=== PATIENT | female | born 1945 | race Caucasian/White ===

== ENCOUNTER 2018-05-25 12:32 | Inpatient (IN) | payer MEDICARE, BC ==
[~2018-05-25] VITALS: Ht 157.5 cm; Wt 98.4 kg
[~2018-05-25 12:32] MED LIST: AMLO10TA6 PO; AMPH20CA11 PO; ASCO500C16 PO; ASPI-605 PO; CHOL100040 PO; CYAN500T4 PO; FLUO-120 PO; FLUV100T3 PO; GABA-534 PO; HYDR25TA4 PO; KELP1TAB PO; LAMO100T PO; LEVO50TA8 PO; LOSA100T31 PO; OLAN5TAB3 PO; OMEG1CAP55 PO; PANT20TA3 PO; SULF500T8 PO; VITA400C19 PO
--- NOTE | 2018-05-25 12:57 | NUR ---
PT BROUGHT IN BY FAMILY MEMBER WITH C/C OF PT AND FAMILY NOT BEING ABLE TO CARE FOR SELF PT EVALUATED BY MD WILL CONTINUE TO MONITOR.
[2018-05-25 13:22] LABS: BASOPHILS % (AUTO) 0.8 % (0.0-2.0); EOSINOPHILS % (AUTO) 2.4 % (0.0-6.0); HEMATOCRIT 34 % (33-45); HEMOGLOBIN 11.2 g/dL (11.5-14.8); LYMPHOCYTES # (AUTO) 1.3 /CMM (0.8-4.8); LYMPHOCYTES % (AUTO) 24.6 % (20.0-44.0); MEAN CORPUSCULAR HGB CONC 33 g/dl (31.0-36.0); MEAN CORPUSCULAR VOLUME 93 fL (82-100); MONOCYTES # (AUTO) 0.6 /CMM (0.1-1.30); MONOCYTES % (AUTO) 11.5 % (2.0-12.0); NEUTROPHILS # (AUTO) 3.3 /CMM (1.8-8.9); NEUTROPHILS % (AUTO) 60.7 % (43.0-81.0); PLATELET COUNT (AUTO) 195 /CMM (150-450); RED BLOOD CELL COUNT(AUTO) 3.63 MIL/uL (4.0-5.2); WHITE BLOOD COUNT (AUTO) 5.4 K/uL (4.3-11.0)
[2018-05-25 13:34] LABS: CALCIUM, SERUM 9.7 mg/dL (8.5-10.1); CREATININE 1.3 mg/dL (0.6-1.3); POTASSIUM 3.4 mmol/L (3.5-5.1)
[2018-05-25 13:40] LABS: ALBUMIN 3.7 g/dL (3.4-5.0); BILIRUBIN,DIRECT 0.1 mg/dL (0.0-0.2); BILIRUBIN,TOTAL 0.4 mg/dL (0.2-1.0); TOTAL PROTEIN, SERUM 7.9 g/dL (6.4-8.2)
[2018-05-25] MEDS ORDERED: MECL-102 PO (13:56)
[2018-05-25] MEDS ORDERED: OMEG1CAP40 PO (13:56)
[2018-05-25] MEDS ORDERED: IV NS 0.9% 1,000 ML BAG IV ONE (14:00)
[2018-05-25] MEDS ORDERED: ACETAMINOPHEN 650 MG/20.3 ML UDC NG ONE (14:30)
--- NOTE | 2018-05-25 14:34 | NUR ---
RN REPORT GIVEN TO GAMALIEL WATSON ON 3 PT ADMITTED TO ROOM 310 BY MD CALABRESE
[2018-05-25] MEDS ORDERED: ACETAMINOPHEN ES 500 MG TABLET ONE (14:36)
[2018-05-25 15:30] VITALS: BP 144/78
--- NOTE | 2018-05-25 15:30 | NUR ---
MS GARMENT INSPECTOR NOTE PT ARRIVED TO MS UNIT IN STABLE CONDITION VIA GURNEY. PT IS A/O X4, AFEBRILE. RESPIRATIONS ARE EVEN AND UNLABORED, NOT IN ANY ACUTE DISTRESS NOTED. PUPILS ARE REACTIVE TO LIGHT, BILATERAL HAND VASCULAR ULTRASOUND TECHNOLOGIST ARE STRONG AND EQUAL. DENIES ANY CHEST PAIN, SOB, N/V. PT C/O PAIN TO LEFT ARM 02/11 BUT STATES "I CAN TOLERATE IT." CAST NOTED TO RIGHT ARM, SLING NOTED TO LEFT ARM. BRUISING ALSO NOTED TO LEFT ARM, PHOTOS TAKEN. ABDOMEN IS SOFT AND NONDISTENDED, BOWEL SOUNDS ARE PRESENT IN ALL 4 QUADRANTS UPON AUSCULTATION. DENIES ANY BLADDER DISCOMFORT. IV SITE TO RAC 20G INTACT, NO INFILTRATION NOTED. DRESSING KEPT CLEAN AND DRY. BELONGINGS ACCOUNTED FOR. [facility] CALABRESE MADE AWARE OF NEW ADMISSION WITH ORDERS CARRIED OUT. WILL CONTINUE TO MONITOR THROUGHOUT SHIFT FOR CONTINUITY OF CARE.
[2018-05-25] MEDS ORDERED: ONDANSETRON HCL/PF 4 MG/2 ML VIAL IVP PRN (16:00)
[2018-05-25] MEDS ORDERED: ZOLPIDEM TARTRATE 5 MG TABLET PO PRN (16:00)
[2018-05-25] MEDS ORDERED: HYDROCODONE/APAP 10/325MG 1 EA TABLET PO PRN (16:00)
[2018-05-25] MEDS ORDERED: MECLIZINE HCL 25 MG TABLET PO PRN (16:00)
[2018-05-25] MEDS ORDERED: HYDROCODONE/APAP 5/325MG 1 EACH TABLET PO PRN (16:00)
[2018-05-25 16:16] VITALS: BP 144/78
[2018-05-25] MEDS ORDERED: SULFASALAZINE 500 MG TABLET PO SCH (17:00)
--- NOTE | 2018-05-25 17:13 | NUR ---
MS RN NOTES-- PT STATED SHE TAKES SULFASALAZINE AT NIGHT WITH ALL HER OTHER MEDICATIONS. [facility] CALABRESE AGREED TO CHANGE MEDICATION TIME.
--- NOTE | 2018-05-25 18:16 | NUR ---
MS RN CLOSING NOTES NEEDS MET AND ANTICIPATED. PT REMAINS A/O X4, AFEBRILE. RESPIRATIONS ARE EVEN AND UNLABORED, NOT IN ANY ACUTE DISTRESS NOTED. DENIES ANY CHEST PAIN, SOB, N/V. IV SITE TO RAC INTACT, NO INFILTRATION NOTED. DRESSING KEPT CLEAN AND DRY. SAFETY MEASURES ARE IN PLACE. DVT PUMPS ARE PLACED. REMINDED PT TO USE CALL LIGHT WHEN ASSISTANCE IS NEEDED, CALL LIGHT IS LEFT WITHIN REACH.
--- NOTE | 2018-05-25 19:00 | NUR ---
RN OPENING NOTES PT AWAKE AND RESTING IN BED. NO COMPLAINTS OF PAIN, SOB OR DISTRESS AT THIS TIME. PT HAS A RIGHT ARM CAST AND A LEFT ARM SLING. PT HAS A RIGHT AC #20 IV INTACT AND PATENT. SAFETY PRECAUTIONS IN PLACE, BED IN LOWEST LOCKED POSITION, X2 SIDE RAILS UP AND CALL LIGHT WITHIN REACH. WILL CONTINUE TO MONITOR.
[2018-05-25 20:00] VITALS: BP 128/61
[2018-05-25] MEDS: SULFASALAZINE 500 MG TABLET PO SCH (21:11)
[2018-05-25] MEDS: FLUVOXAMINE MALEATE 50 MG TABLET PO SCH (21:12)
[2018-05-25] MEDS: OLANZAPINE 5 MG TABLET PO SCH (21:12)
[2018-05-25] MEDS: LamoTRIgine 100 MG TABLET PO SCH (21:13)
--- NOTE | 2018-05-26 06:31 | NUR ---
RN NOTES PER LAB UNABLE TO OBTAIN BLOOD SAMPLE FOR AM LABS AT THIS TIME. WILL SEND SOMEONE LATER THIS MORNING.
--- NOTE | 2018-05-26 06:45 | NUR ---
RN CLOSING NOTES PT AWAKE AND RESTING IN BED. NO COMPLAINTS OF PAIN, SOB OR DISTRESS OVERNIGHT. PT HAS A RIGHT ARM CAST AND A LEFT ARM SLING. PT HAS A RIGHT AC #20 IV INTACT AND PATENT. SAFETY PRECAUTIONS IN PLACE, BED IN LOWEST LOCKED POSITION, X2 SIDE RAILS UP AND CALL LIGHT WITHIN REACH. WILL ENDORSE TO DAY SHIFT NURSE FOR CONTINUITY OF CARE.
[2018-05-26] MEDS: PANTOPRAZOLE 40 MG TABLET.DR PO SCH (07:30)
--- NOTE | 2018-05-26 07:35 | NUR ---
MS RN OPENING NOTES RECEIVED PT LAYING IN BED. PT IS A/O X4, AFEBRILE. EASILY AROUSABLE. RESPIRATIONS ARE EVEN AND UNLABORED, NOT IN ANY ACUTE DISTRESS NOTED. PT DENIES ANY PAIN AT THIS TIME, NO C/O SOB, N/V. IV SITE IS INTACT TO RAC, NO INFILTRATION NOTED. DRESSING KEPT CLEAN AND DRY. SAFETY MEASURES ARE IN PLACE. INSTRUCTED PT TO USE CALL LIGHT WHEN ASSISTANCE IS NEEDED, CALL LIGHT IS LEFT WITHIN REACH. WILL CONTINUE TO MONITOR THROUGHOUT SHIFT FOR CONTINUITY OF CARE.
[2018-05-26 08:00] VITALS: BP 135/75
[2018-05-26] MEDS: LEVOTHYROXINE SODIUM 50 MCG TABLET PO SCH (08:55)
[2018-05-26] MEDS: SULFASALAZINE 500 MG TABLET PO SCH ×2 (08:55→21:31)
[2018-05-26] MEDS: FLUOXETINE HCL 20 MG CAPSULE PO SCH (08:55)
[2018-05-26] MEDS: LOSARTAN POTASSIUM 50 MG TABLET PO SCH (08:56)
[2018-05-26] MEDS: AMLODIPINE BESYLATE 10 MG TABLET PO SCH (08:56)
[2018-05-26] MEDS ORDERED: HYDROCHLOROTHIAZIDE 25 MG TABLET PO SCH (09:00)
[2018-05-26] MEDS ORDERED: IV NS 0.9% 1,000 ML IV PRN (09:42)
[2018-05-26] MEDS: POTASSIUM CHLORIDE 20 MEQ TAB.PRT.SR PO SCH ×2 (10:44→12:05)
[2018-05-26 12:59] LABS: CALCIUM, SERUM 9.1 mg/dL (8.5-10.1); CREATININE 1.4 mg/dL (0.6-1.3); MAGNESIUM 1.8 mg/dL (1.8-2.4); PHOSPHORUS 3.7 mg/dL (2.5-4.9); POTASSIUM 3.7 mmol/L (3.5-5.1)
[2018-05-26 13:12] LABS: THYROID STIMULATING HORMONE 2.493 uIU/mL (0.358-3.74)
[2018-05-26 13:26] LABS: EOSINOPHILS % (AUTO) 3.3 % (0.0-6.0); HEMATOCRIT 33 % (33-45); LYMPHOCYTES # (AUTO) 1.5 /CMM (0.8-4.8); LYMPHOCYTES % (AUTO) 32.8 % (20.0-44.0); MEAN CORPUSCULAR HGB CONC 33 g/dl (31.0-36.0); MEAN CORPUSCULAR VOLUME 93 fL (82-100); MONOCYTES # (AUTO) 0.6 /CMM (0.1-1.30); MONOCYTES % (AUTO) 12.7 % (2.0-12.0); NEUTROPHILS # (AUTO) 2.3 /CMM (1.8-8.9); NEUTROPHILS % (AUTO) 50.2 % (43.0-81.0); PLATELET COUNT (AUTO) 193 /CMM (150-450); WHITE BLOOD COUNT (AUTO) 4.7 K/uL (4.3-11.0)
--- NOTE | 2018-05-26 18:19 | NUR ---
MS RN CLOSING NOTES ALL DUE MEDS GIVEN, NEEDS MET AND ANTICIPATED. PT REMAINS A/O X4, AFEBRILE. RESPIRATIONS ARE EVEN AND UNLABORED, NOT IN ANY ACUTE DISTRESS NOTED. DENIES ANY CHEST PAIN, SOB, N/V. IV SITE TO RAC INTACT, NO INFILTRATION NOTED. DRESSING KEPT CLEAN AND DRY. IV FLUIDS RUNNING AND TOLERATING WELL. SAFETY MEASURES ARE IN PLACE. REMINDED PT TO USE CALL LIGHT WHEN ASSISTANCE IS NEEDED, CALL LIGHT IS LEFT WITHIN REACH. WILL ENDORSE TO NEXT SHIFT FOR CONTINUITY OF CARE.
[2018-05-26] MEDS: ACETAMINOPHEN 325 MG TABLET PO PRN (19:37)
--- NOTE | 2018-05-26 19:39 | NUR ---
MS/RN OPENING NOTES RECEIVED PATIENT IN BED, RESTING COMFORTABLY IN BED, REPORTED SOME PAIN LEFT ARM, TYLENOL WAS REQUESTED, SKIN WARM TO TOUCH. LEFT ARM ON SLING, RIGHT ARM WITH CAST, WITH GOOD EYE CONTACT, IV SITE WITH NO S/S OF INFILTRATION RIGHT AC GAUGE 20. CALL LIGHTS WITHIN REACH, BED LOCKED, BED ALARM ON. REFUSE DVT PUMP AT THIA TIME, WILL MONITOR. PROVIDED FLUIDS, OFFERED SNACKS BUT DECLINED AT THIS TIME, RECEIVED ENDORESEMENT FROM AM RN FOR JUNIE WILL MONITOR.
[2018-05-26 20:00] VITALS: BP 119/61
[2018-05-26] MEDS: FLUVOXAMINE MALEATE 50 MG TABLET PO SCH (22:22)
[2018-05-26] MEDS: LamoTRIgine 100 MG TABLET PO SCH (22:22)
[2018-05-26] MEDS: OLANZAPINE 5 MG TABLET PO SCH (22:22)
[2018-05-27 06:23] LABS: EOSINOPHILS % (AUTO) 6.4 % (0.0-6.0); HEMATOCRIT 32 % (33-45); HEMOGLOBIN 10.6 g/dL (11.5-14.8); LYMPHOCYTES # (AUTO) 1.9 /CMM (0.8-4.8); LYMPHOCYTES % (AUTO) 41.8 % (20.0-44.0); MEAN CORPUSCULAR HGB CONC 33 g/dl (31.0-36.0); MEAN CORPUSCULAR VOLUME 93 fL (82-100); MONOCYTES # (AUTO) 0.6 /CMM (0.1-1.30); MONOCYTES % (AUTO) 13.3 % (2.0-12.0); NEUTROPHILS # (AUTO) 1.7 /CMM (1.8-8.9); NEUTROPHILS % (AUTO) 37.5 % (43.0-81.0); PLATELET COUNT (AUTO) 188 /CMM (150-450); RED BLOOD CELL COUNT(AUTO) 3.42 MIL/uL (4.0-5.2); WHITE BLOOD COUNT (AUTO) 4.6 K/uL (4.3-11.0)
[2018-05-27 06:39] LABS: ALANINE AMINOTRANSFERASE 17 U/L (12-78); ALBUMIN 3.2 g/dL (3.4-5.0); ALKALINE PHOSPHATASE 86 U/L (46-116); ASPARTATE AMINOTRANSFERASE 17 U/L (15-37); BILIRUBIN,TOTAL 0.3 mg/dL (0.2-1.0); CALCIUM, SERUM 9.1 mg/dL (8.5-10.1); CARBON DIOXIDE 26 mmol/L (21-32); CHLORIDE 105 mmol/L (98-107); CREATININE 1.3 mg/dL (0.6-1.3); GLUCOSE 91 mg/dL (74-106); MAGNESIUM 1.8 mg/dL (1.8-2.4); PHOSPHORUS 3.5 mg/dL (2.5-4.9); POTASSIUM 3.7 mmol/L (3.5-5.1); SODIUM SERUM 140 mmol/L (136-145); TOTAL PROTEIN, SERUM 7.2 g/dL (6.4-8.2); UREA NITROGEN, BLOOD 21 mg/dL (7-18)
--- NOTE | 2018-05-27 06:42 | NUR ---
310-1 MS/RN NOTES PATIENT ABLE TO SLEEP INTERMITENTLY, ALERT, ORIENTED X3, ABLE TO VERBALIZE NEEDS AT ALL TIMES, PARTICIPATIVE WITH CARE, ASSISTED TO BATHROOM, PROVIDED/OFFERED FLUIDS, SKIN WARM TO TOUCH, MONITORED FOR ANY CHANGES. BED LOCKED, CALL LIGHTS WITHIN REACH, SAFETY MEASURES PROVIDED.
[2018-05-27] MEDS: PANTOPRAZOLE 40 MG TABLET.DR PO SCH (07:33)
[2018-05-27] MEDS: LEVOTHYROXINE SODIUM 50 MCG TABLET PO SCH (07:33)
--- NOTE | 2018-05-27 07:50 | NUR ---
M/S RN - Assessment Patient awake, A/ O x 4, denies pain at this time, afebrile, not in any form of distress, stable on room air. Left shoulder sling and right wrist cast in place, able to move fingers, skin warm to touch. Saline lock on the RAC is patent, intact, with no signs of infiltration. Fall precautions maintained. All needs attended and met. [facility] planning [facility] when medically stable. Will continue with current medical management.
[2018-05-27 08:00] VITALS: BP 126/70
[2018-05-27] MEDS: LOSARTAN POTASSIUM 50 MG TABLET PO SCH (08:16)
[2018-05-27] MEDS: FLUOXETINE HCL 20 MG CAPSULE PO SCH (08:16)
[2018-05-27] MEDS: AMLODIPINE BESYLATE 10 MG TABLET PO SCH (08:16)
[2018-05-27] MEDS: SULFASALAZINE 500 MG TABLET PO SCH ×2 (08:18→20:21)
[2018-05-27 16:00] VITALS: BP 158/73
--- NOTE | 2018-05-27 17:22 | NUR ---
M/S RN - Closing notes No new events seen, remain afebrile, denies pain, stable on room air. Saline lock ton the RAC is patent, intact, with no complications. Anticipate discharge to SNF tomorrow if she continue to be stable.
[2018-05-27 20:00] VITALS: BP 117/78
--- NOTE | 2018-05-27 20:00 | NUR ---
MS/RN OPENING NOTES RECEIVED PATIENT IN BED, AWAKE, ALERT, ABLE TO VERBALIZE NEEDS, REPORTED MINIMAL PAIN ON LEFT LEG, REQUESTED FOR TYLENOL 650 MG PO BY MOUTH, HAD A SNACK. BRP WITH ASSISTANCE. COMPLIANT TO CARE. WILL MONITOR.BED LOCKED CALL LIGHTS WITHIN REACH. PROVIDED FLUIDS.
[2018-05-27] MEDS: ACETAMINOPHEN 325 MG TABLET PO PRN (20:21)
[2018-05-27] MEDS: LamoTRIgine 100 MG TABLET PO SCH (21:56)
[2018-05-27] MEDS: FLUVOXAMINE MALEATE 50 MG TABLET PO SCH (21:56)
[2018-05-27] MEDS: OLANZAPINE 5 MG TABLET PO SCH (21:56)
--- NOTE | 2018-05-28 01:35 | NUR ---
MS/RN NOTES OBSERVE NIGHT SWEATS, PATIENT BEDDING WET, UNABLE TO SLEEP.
--- NOTE | 2018-05-28 06:15 | NUR ---
310-1 MS/RN NOTES PATIENT ALERT, ORIENTED ABLE TO VERBALIZE NEEDS AND CONCERNS, RESPIRATIONS EVEN AND UNLABORED, DISCUSSED PLAN OF CARE, WILL MONITOR AND ENDORSE TO AM RN FOR JUNIE.
[2018-05-28] MEDS: PANTOPRAZOLE 40 MG TABLET.DR PO SCH ×2 (07:30→08:13)
--- NOTE | 2018-05-28 07:30 | NUR ---
RN MS NOTES PT IN BED, AWAKE, ALERT AND ORIENTED, DENIES PAIN, BREATHING PATTERN NORMAL, CALL LIGHT WITHIN REACH, NEEDS ATTENDED, PLAN OF CARE DISCUSSED WITH PT, VERBALIZED UNDERSTANDING.
[2018-05-28 08:00] VITALS: BP 150/80
[2018-05-28] MEDS: LEVOTHYROXINE SODIUM 50 MCG TABLET PO SCH (08:13)
[2018-05-28 09:10] VITALS: BP 150/80
[2018-05-28] MEDS: FLUOXETINE HCL 20 MG CAPSULE PO SCH (09:10)
[2018-05-28] MEDS: SULFASALAZINE 500 MG TABLET PO SCH (09:10)
[2018-05-28] MEDS: AMLODIPINE BESYLATE 10 MG TABLET PO SCH (09:10)
--- NOTE | 2018-05-28 09:56 | NUR ---
RN MS NOTES PT IN BED, AWAKE, ALERT AND ORIENTED, NO COMPLAINT OF PAIN, BREATHING PATTERN NORMAL, CALL LIGHT WITHIN REACH, SEEN BY BHARATI AZUL AUDIO INSTALLER, PLAN OF CARE DISCUSSED WITH PT, DISCHARGE ORDER GIVEN, PT VERBALIZED UNDERSTANDING.
--- NOTE | 2018-05-28 13:45 | NUR ---
RN MS NOTES PT IN BED, AWAKE, ALERT AND ORIENTED, NO COMPLAINT OF PAIN, RESPIRATIONS NORMAL, ASSISTED TO BATHROOM NEEDED, SEEN AND EXAMINED BY BHARATI AZUL NURSE LIAISON, DISCHARGE ORDER GIVEN, DISCHARGE AND MEDICATION INSTRUCTIONS PROVIDED TO PT, VERBALIZED UNDERSTANDING, REPORT GIVEN TO [facility], PT'S SISTER KIET INFORMED OF PT'S DISCHARGE TO SNF, VERBALIZED UNDERSTANDING, BELONGINGS ACCOUNTED FOR, SLING AT LEFT SHOULDER IN PLACE, CAST AT RIGHT LOWER ARM INTACT, PICKED UP BY 2 AMBULANCE PERSONNEL, LEFT VIA GUERNEY IN STABLE CONDITION.
[2018-05-28] MEDS ORDERED: LOSARTAN POTASSIUM 50 MG TABLET PO SCH (22:00)
== END 2018-05-28 14:15 | DRG 683 ==
LOC: ER 12:34 → MED 14:24
PROVIDERS: ADMIT Nurse Practitioner Acute Care; ATTEND Nurse Practitioner Acute Care
DX: N17.0 Acute kidney failure with tubular necrosis (principal); E44.0 Moderate protein-calorie malnutrition; R26.81 Unsteadiness on feet; K58.9 Irritable bowel syndrome, unspecified; F32.9 Major depressive disorder, single episode, unspecified; S42.302S Unspecified fracture of shaft of humerus, left arm, sequela; S62.101S Fracture of unspecified carpal bone, right wrist, sequela; Z91.81 History of falling; Z90.49 Acquired absence of other specified parts of digestive tract; Z90.710 Acquired absence of both cervix and uterus; Z79.82 Long term (current) use of aspirin; Z68.38 Body mass index [BMI] 38.0-38.9, adult; M06.9 Rheumatoid arthritis, unspecified; I34.1 Nonrheumatic mitral (valve) prolapse; I10 Essential (primary) hypertension; G47.30 Sleep apnea, unspecified; E87.6 Hypokalemia; E66.01 Morbid (severe) obesity due to excess calories
CPT/HCPCS: 36415; 71045-TC; 80048-TC; 80053-TC; 80061-TC; 80076-TC; 83735-TC; 84100-TC; 84443-TC; 84484-TC; 85025-TC; 85730-TC; 87081-TC; 93307-TC; 97110-TC; 97116-TC; 97530-TC; A4606; G0378; J7030; Z7610

== ENCOUNTER 2023-07-18 13:30 | Inpatient (IN) | payer BC, MEDICARE ==
[~2023-07-18] VITALS: Ht 162.6 cm; Wt 75.7 kg
[~2023-07-18 13:30] MED LIST changes: +AMLO-213 PO; -AMLO10TA6 PO; -AMPH20CA11 PO; -ASCO500C16 PO; -ASPI-605 PO; -CHOL100040 PO; -CYAN500T4 PO; -FLUO-120 PO; +FLUO20CA42 PO; -GABA-534 PO; -KELP1TAB PO; -LAMO100T PO; +LAMO100T17 PO; +MECL-159 PO; +OMEG1CAP40 PO; -OMEG1CAP55 PO; -PANT20TA3 PO; -VITA400C19 PO
[2023-07-18] MEDS: IV NS 0.9% 1,000 ML BAG IV ONE (14:40)
[2023-07-18 15:12] LABS: BASOPHILS % (AUTO) 0.3 % (0.0-2.0); EOSINOPHILS # (AUTO) 0.1 K/uL (0.0-0.7); EOSINOPHILS % (AUTO) 3.7 % (0.0-6.0); HEMATOCRIT 35 % (33-45); HEMOGLOBIN 11.5 g/dL (11.5-14.8); LYMPHOCYTES # (AUTO) 1.2 K/uL (0.8-4.8); LYMPHOCYTES % (AUTO) 32.2 % (20.0-44.0); MEAN CORPUSCULAR HEMOGLOBIN 29 PG (26.0-33.0); MEAN CORPUSCULAR HGB CONC 33 g/dl (31.0-36.0); MEAN CORPUSCULAR VOLUME 88 fL (82-100); MONOCYTES # (AUTO) 0.7 K/uL (0.1-1.30); NEUTROPHILS # (AUTO) 1.7 K/uL (1.8-8.9); NEUTROPHILS % (AUTO) 45.8 % (43.0-81.0); PLATELET COUNT (AUTO) 153 K/uL (150-450); RED BLOOD CELL COUNT(AUTO) 3.91 MIL/uL (4.0-5.2); RED CELL DISTRIBUTION WIDTH 13.8 % (11.5-15.0); WHITE BLOOD COUNT (AUTO) 3.7 K/uL (4.3-11.0)
[2023-07-18 15:34] LABS: ALANINE AMINOTRANSFERASE 29 U/L (12-78); ALBUMIN 3.3 g/dL (3.4-5.0); ALKALINE PHOSPHATASE 87 U/L (46-116); ASPARTATE AMINOTRANSFERASE 27 U/L (15-37); BILIRUBIN,DIRECT 0.1 mg/dL (0.0-0.2); BILIRUBIN,TOTAL 0.4 mg/dL (0.2-1.0); CALCIUM, SERUM 8.9 mg/dL (8.5-10.1); CARBON DIOXIDE 25 mmol/L (21-32); CHLORIDE 101 mmol/L (98-107); CREATININE 1.7 mg/dL (0.6-1.3); GLUCOSE 83 mg/dL (74-106); POTASSIUM 3.9 mmol/L (3.5-5.1); SODIUM SERUM 136 mmol/L (136-145); TOTAL PROTEIN, SERUM 7.6 g/dL (6.4-8.2); UREA NITROGEN, BLOOD 33 mg/dL (7-18)
[2023-07-18 16:05] LABS: EOSINOPHILS % (MANUAL) 4 % (0-4); LYMPHOCYTES % (MANUAL) 36 % (16-48); MONOCYTES % (MANUAL) 15 % (0-11.0); NEUTROPHILS % (MANUAL) 45 (42-76)
[2023-07-18 16:06] LABS: PLATELET ESTIMATE ADEQUATE
[2023-07-18 16:36] LABS: SALICYLATE 1.3 mg/dL (2.8-20.0)
[2023-07-18 20:30] LABS: APPEARANCE,URINE SLIGHTLY CLOUDY (CLEAR); BILIRUBIN,URINE NEGATIVE (NEGATIVE); BLOOD, URINE TRACE-INTA Ery/uL (NEGATIVE); COLOR,URINE YELLOW (YELLOW); KETONES,URINE NEGATIVE (NEGATIVE); LEUKOCYTE ESTERASE ,URINE 2+ (NEGATIVE); NITRITE, URINE NEGATIVE (NEGATIVE); PROTEIN,URINE NEGATIVE (NEGATIVE); UGLUCOSE NEGATIVE (NEGATIVE); UROBILINOGEN,URINE 0.2 EU/dL (0.2)
[2023-07-18 20:39] LABS: AMPHETAMINE, URINE NEGATIVE (NEGATIVE); BARBITURATE, URINE NEGATIVE (NEGATIVE); BENZODIAZEPINE, URINE NEGATIVE (NEGATIVE); CANNABINOID, URINE NEGATIVE (NEGATIVE); COCCAINE, URINE NEGATIVE (NEGATIVE); OPIATE, URINE NEGATIVE (NEGATIVE); PHENCYCLIDINE SCREEN,URINE NEGATIVE (NEGATIVE)
[2023-07-18 20:52] LABS: ADD URINE CULTURE YES; BACTERIA,URINE 4+ /HPF (None Seen); RBC,URINE 0-2 /HPF (0-2); SQUAMOUS EPITHELIAL CELL,UR Few /HPF (None Seen); WBC,URINE TOO NUMEROUS TO COUN /HPF (0-3)
[2023-07-18 21:40] VITALS: BP 138/60; TEMP 97.7; O2SAT 97
[2023-07-18] MEDS ORDERED: MAGNESIUM HYDROXIDE 30 ML UDC PO PRN (22:00)
[2023-07-18] MEDS ORDERED: ACETAMINOPHEN 325 MG TABLET PO PRN (22:00)
[2023-07-18] MEDS ORDERED: MAG HYDROX/AL HYDROX/SIMETH 30 ML UDC PO PRN (22:00)
[2023-07-18] MEDS: BLOOD SUGAR DIAGNOSTIC 1 EACH STRIP IN ONE (22:26)
[2023-07-19] MEDS: hydrOXYzine PAMOATE 25 MG CAPSULE PO PRN (00:27)
[2023-07-19 08:00] VITALS: BP 156/73; TEMP 98; O2SAT 98
[2023-07-19 08:02] LABS: CHOLESTEROL 135 mg/dL (<200); HDL CHOLESTEROL 74 mg/dL (40-60); LDL 43 mg/dL (0-99); TRIGLYCERIDES 78 mg/dL (30-150)
[2023-07-19] MEDS ORDERED: ATOR10TA PO (08:23)
[2023-07-19] MEDS ORDERED: GABA300C PO (08:23)
[2023-07-19] MEDS ORDERED: FLUO20TA28 PO (08:23)
[2023-07-19] MEDS ORDERED: TERB250T53 PO (08:23)
[2023-07-19] MEDS ORDERED: LEVO100T PO (08:23)
[2023-07-19] MEDS ORDERED: NYST1POW11 TP (08:23)
[2023-07-19] MEDS ORDERED: ACET-868 PO (08:23)
[2023-07-19] MEDS ORDERED: LIOT5TAB11 PO (08:23)
[2023-07-19 08:42] LABS: ALANINE AMINOTRANSFERASE 39 U/L (12-78); ALBUMIN 3.5 g/dL (3.4-5.0); ALKALINE PHOSPHATASE 88 U/L (46-116); ASPARTATE AMINOTRANSFERASE 32 U/L (15-37); BILIRUBIN,TOTAL 0.3 mg/dL (0.2-1.0); CALCIUM, SERUM 9.4 mg/dL (8.5-10.1); CARBON DIOXIDE 24 mmol/L (21-32); CHLORIDE 102 mmol/L (98-107); CREATININE 1.7 mg/dL (0.6-1.3); GLUCOSE 106 mg/dL (74-106); POTASSIUM 3.7 mmol/L (3.5-5.1); SODIUM SERUM 139 mmol/L (136-145); TOTAL PROTEIN, SERUM 7.9 g/dL (6.4-8.2); UREA NITROGEN, BLOOD 31 mg/dL (7-18)
[2023-07-19] MEDS: AMLODIPINE BESYLATE 5 MG TABLET PO SCH (14:03)
[2023-07-19 16:00] VITALS: BP 141/63; TEMP 98; O2SAT 98
[2023-07-19] MEDS: GABAPENTIN 300 MG CAPSULE PO SCH (16:26)
[2023-07-19 20:00] VITALS: BP 139/54; TEMP 98.5; O2SAT 98
[2023-07-19] MEDS: ATORVASTATIN 10 MG TABLET PO SCH (21:26)
[2023-07-19] MEDS: OLANZAPINE 5 MG TABLET PO SCH (21:26)
[2023-07-20 07:14] LABS: BASOPHILS % (AUTO) 0.5 % (0.0-2.0); EOSINOPHILS # (AUTO) 0.2 K/uL (0.0-0.7); EOSINOPHILS % (AUTO) 3.9 % (0.0-6.0); HEMATOCRIT 32 % (33-45); HEMOGLOBIN 10.9 g/dL (11.5-14.8); LYMPHOCYTES # (AUTO) 1.5 K/uL (0.8-4.8); LYMPHOCYTES % (AUTO) 27.3 % (20.0-44.0); MEAN CORPUSCULAR HEMOGLOBIN 30 PG (26.0-33.0); MEAN CORPUSCULAR HGB CONC 34 g/dl (31.0-36.0); MEAN CORPUSCULAR VOLUME 88 fL (82-100); MONOCYTES # (AUTO) 0.8 K/uL (0.1-1.30); MONOCYTES % (AUTO) 14.7 % (2.0-12.0); NEUTROPHILS # (AUTO) 2.9 K/uL (1.8-8.9); NEUTROPHILS % (AUTO) 53.6 % (43.0-81.0); PLATELET COUNT (AUTO) 155 K/uL (150-450); RED BLOOD CELL COUNT(AUTO) 3.63 MIL/uL (4.0-5.2); RED CELL DISTRIBUTION WIDTH 13.6 % (11.5-15.0); WHITE BLOOD COUNT (AUTO) 5.4 K/uL (4.3-11.0)
[2023-07-20 07:21] LABS: APPEARANCE,URINE CLOUDY (CLEAR); BILIRUBIN,URINE NEGATIVE (NEGATIVE); BLOOD, URINE NEGATIVE Ery/uL (NEGATIVE); COLOR,URINE YELLOW (YELLOW); KETONES,URINE NEGATIVE (NEGATIVE); LEUKOCYTE ESTERASE ,URINE 2+ (NEGATIVE); NITRITE, URINE NEGATIVE (NEGATIVE); PROTEIN,URINE NEGATIVE (NEGATIVE); UGLUCOSE NEGATIVE (NEGATIVE); UROBILINOGEN,URINE 0.2 EU/dL (0.2)
[2023-07-20 07:27] LABS: CREATININE, URINE 40.7 MG/DL (30.0-125.0); URINE TOTAL PROTEIN 8.9 mg/dL (0-11.9)
[2023-07-20 07:28] LABS: ADD URINE CULTURE YES; BACTERIA,URINE Few /HPF (None Seen); SQUAMOUS EPITHELIAL CELL,UR Rare /HPF (None Seen)
[2023-07-20 07:45] LABS: EOSINOPHIL,URINE None Seen
[2023-07-20 07:56] LABS: ALANINE AMINOTRANSFERASE 39 U/L (12-78); ALBUMIN 3.1 g/dL (3.4-5.0); ALKALINE PHOSPHATASE 77 U/L (46-116); ASPARTATE AMINOTRANSFERASE 32 U/L (15-37); BILIRUBIN,TOTAL 0.2 mg/dL (0.2-1.0); CALCIUM, SERUM 9.1 mg/dL (8.5-10.1); CARBON DIOXIDE 26 mmol/L (21-32); CHLORIDE 104 mmol/L (98-107); CREATININE 1.6 mg/dL (0.6-1.3); GLUCOSE 89 mg/dL (74-106); MAGNESIUM 1.7 mg/dL (1.8-2.4); PHOSPHORUS 3.2 mg/dL (2.5-4.9); POTASSIUM 3.2 mmol/L (3.5-5.1); SODIUM SERUM 140 mmol/L (136-145); TOTAL PROTEIN, SERUM 7.1 g/dL (6.4-8.2); UREA NITROGEN, BLOOD 25 mg/dL (7-18)
[2023-07-20 08:00] VITALS: BP 142/77; TEMP 98.7; O2SAT 96
[2023-07-20 08:11] LABS: CREATINE KINASE, TOTAL 186 U/L (26-192)
[2023-07-20] MEDS: HYDROCHLOROTHIAZIDE 25 MG TABLET PO SCH (08:45)
[2023-07-20] MEDS: LEVOTHYROXINE SODIUM 100 MCG TABLET PO SCH (08:46)
[2023-07-20] MEDS: LOSARTAN POTASSIUM 50 MG TABLET PO SCH (08:46)
[2023-07-20] MEDS: AMLODIPINE BESYLATE 10 MG TABLET PO SCH (08:46)
[2023-07-20] MEDS: LIOTHYRONINE SODIUM (5 MCG/TA 5 MCG TABLET PO SCH (08:48)
[2023-07-20] MEDS ORDERED: GABAPENTIN 300 MG CAPSULE PO SCH (09:00)
[2023-07-20] MEDS ORDERED: FLUOXETINE HCL 20 MG/5 ML UDC PO SCH (09:00)
[2023-07-20] MEDS: FLUOXETINE HCL 20 MG CAPSULE PO SCH (09:37)
[2023-07-20 16:00] VITALS: BP 127/64; TEMP 97.9; O2SAT 97
[2023-07-20 20:00] VITALS: BP 107/48; TEMP 98.1; O2SAT 96
[2023-07-21 04:12] LABS: PTH, INTACT 56 pg/mL (15-65)
[2023-07-21 08:00] VITALS: BP 126/63; TEMP 97.9; O2SAT 97
[2023-07-21 16:00] VITALS: BP 123/65; TEMP 97.9; O2SAT 100
[2023-07-21 20:53] VITALS: BP 121/64; TEMP 98.2; O2SAT 98
[2023-07-22] MEDS: POTASSIUM CHLORIDE 20 MEQ TAB.PRT.SR PO ONE (06:31)
[2023-07-22] MEDS: CEPHALEXIN MONOHYDRATE 250 MG CAPSULE PO SCH (06:32)
[2023-07-22 07:49] LABS: BASOPHILS # (AUTO) 0.1 K/uL (0.0-0.2); BASOPHILS % (AUTO) 1.1 % (0.0-2.0); EOSINOPHILS # (AUTO) 0.2 K/uL (0.0-0.7); EOSINOPHILS % (AUTO) 3.6 % (0.0-6.0); HEMATOCRIT 33 % (33-45); HEMOGLOBIN 11.2 g/dL (11.5-14.8); LYMPHOCYTES # (AUTO) 1.6 K/uL (0.8-4.8); LYMPHOCYTES % (AUTO) 31.8 % (20.0-44.0); MEAN CORPUSCULAR HEMOGLOBIN 30 PG (26.0-33.0); MEAN CORPUSCULAR HGB CONC 34 g/dl (31.0-36.0); MEAN CORPUSCULAR VOLUME 88 fL (82-100); MONOCYTES # (AUTO) 0.8 K/uL (0.1-1.30); MONOCYTES % (AUTO) 15.2 % (2.0-12.0); NEUTROPHILS # (AUTO) 2.5 K/uL (1.8-8.9); NEUTROPHILS % (AUTO) 48.3 % (43.0-81.0); PLATELET COUNT (AUTO) 176 K/uL (150-450); RED BLOOD CELL COUNT(AUTO) 3.81 MIL/uL (4.0-5.2); RED CELL DISTRIBUTION WIDTH 13.8 % (11.5-15.0); WHITE BLOOD COUNT (AUTO) 5.2 K/uL (4.3-11.0)
[2023-07-22 07:59] LABS: CALCIUM, SERUM 9.1 mg/dL (8.5-10.1); CARBON DIOXIDE 29 mmol/L (21-32); CHLORIDE 104 mmol/L (98-107); CREATININE 1.6 mg/dL (0.6-1.3); GLUCOSE 99 mg/dL (74-106); MAGNESIUM 1.6 mg/dL (1.8-2.4); PHOSPHORUS 3.4 mg/dL (2.5-4.9); POTASSIUM 4.3 mmol/L (3.5-5.1); SODIUM SERUM 141 mmol/L (136-145); UREA NITROGEN, BLOOD 25 mg/dL (7-18)
[2023-07-22 08:00] VITALS: BP 133/71; TEMP 97.7; O2SAT 100
[2023-07-22 08:11] LABS: THYROID STIMULATING HORMONE 0.838 uIU/mL (0.358-3.74)
[2023-07-22] MEDS: MAGNESIUM OXIDE 400 MG TABLET PO ONE (10:30)
[2023-07-22 16:00] VITALS: BP 114/59; TEMP 97.8; O2SAT 96
[2023-07-22 21:16] VITALS: BP 124/55; TEMP 98.1; O2SAT 95
[2023-07-23 08:00] VITALS: BP 130/52; TEMP 98.6; O2SAT 96
[2023-07-23 09:10] LABS: *SPE A/G RATIO 0.9 (0.7-1.7); *SPE ALBUMIN 3.2 g/dL (2.9-4.4); *SPE ALPHA-1-GLOBULIN 0.3 g/dL (0.0-0.4); *SPE ALPHA-2-GLOBULIN 0.8 g/dL (0.4-1.0); *SPE BETA GLOBULIN 0.8 g/dL (0.7-1.3); *SPE GLOBULIN, TOTAL 3.6 g/dL (2.2-3.9); *SPE M-SPIKE 0.9 g/dL (Not Observed); *SPE PROTEIN TOTAL 6.8 g/dL (6.0-8.5); *SPEGAMMA GLOBULIN 1.8 g/dL (0.4-1.8)
[2023-07-23 16:00] VITALS: BP 120/74; TEMP 98.1; O2SAT 96
[2023-07-23 21:10] VITALS: BP 110/59; TEMP 98; O2SAT 96
[2023-07-24 08:00] VITALS: BP 137/54; TEMP 97.9; O2SAT 97
[2023-07-24] MEDS: FLUOXETINE HCL 20 MG CAPSULE PO SCH (09:03)
[2023-07-24 16:14] VITALS: BP 127/63; TEMP 97.7; O2SAT 94
[2023-07-24 21:16] VITALS: BP 102/50; TEMP 97.9; O2SAT 97
[2023-07-25 08:00] VITALS: BP 123/71; TEMP 97.9; O2SAT 95
[2023-07-25 16:00] VITALS: BP 133/61; TEMP 97.7; O2SAT 97
[2023-07-25 20:00] VITALS: BP 131/62; TEMP 98.1; O2SAT 97
[2023-07-26 08:00] VITALS: BP 133/72; TEMP 97.8; O2SAT 98
[2023-07-26 09:14] VITALS: BP 132/72
== END 2023-07-26 15:15 | disposition home or self-care (01) | DRG 885 ==
LOC: ER 13:35 → GPS 20:01
PROVIDERS: ADMIT Psychiatry & Neurology Psychiatry; ATTEND Nurse Practitioner Acute Care
DX: F33.2 Major depressive disorder, recurrent severe without psychotic features (principal); N17.9 Acute kidney failure, unspecified; N18.9 Chronic kidney disease, unspecified; N39.0 Urinary tract infection, site not specified; M19.90 Unspecified osteoarthritis, unspecified site; B96.20 Unspecified Escherichia coli [E. coli] as the cause of diseases classified elsewhere; D72.819 Decreased white blood cell count, unspecified; E03.9 Hypothyroidism, unspecified; F39 Unspecified mood [affective] disorder; J45.909 Unspecified asthma, uncomplicated; Z87.891 Personal history of nicotine dependence; Z90.710 Acquired absence of both cervix and uterus; Z79.899 Other long term (current) drug therapy; I12.9 Hypertensive chronic kidney disease with stage 1 through stage 4 chronic kidney disease, or unspecified chronic kidney disease; Z20.822 Contact with and (suspected) exposure to COVID-19; F29 Unspecified psychosis not due to a substance or known physiological condition; Z73.6 Limitation of activities due to disability; Z86.79 Personal history of other diseases of the circulatory system
CPT/HCPCS: 36415; 71045-TC; 80048-TC; 80053-TC; 80061-TC; 80076-TC; 81001; 82550-TC; 82570-TC; 82962-TC; 83735-TC; 83970; 84100-TC; 84155; 84165; 84300-TC; 84439-TC; 84443-TC; 84484-TC; 85025-TC; 86850-TC; 87081-TC; 87086-TC; G0480; J7030; Q0177